=== PATIENT | male | born 1945 ===

== ENCOUNTER 2022-04-21 08:00 | Outpatient (CLI) | payer MEDICARE, OTHER ==
[2022-04-21 20:33] LABS: THYROID STIMULATING HORMONE 2.55 uIU/mL (0.34-5.60)
[2022-04-21 20:35] LABS: FREE T4 (FREE THYROXINE) 0.87 ng/dL (0.58-1.64)
[2022-04-21 20:37] LABS: FREE T3 3.41 pg/mL (2.5-3.9)
[2022-04-21 20:44] LABS: FOLATE 17.16 ng/mL (5.90 - >24.8)
== END 2022-04-22 23:59 | disposition home or self-care (01) ==
LOC: LAB.S 08:00
PROVIDERS: ATTEND Naturopath
DX: R94.6 Abnormal results of thyroid function studies (principal); Z78.9 Other specified health status; Z12.11 Encounter for screening for malignant neoplasm of colon
CPT/HCPCS: 36415; 81599; 82607; 82746; 83789; 84439; 84443; 84481